=== PATIENT | female | born 1940 | race Caucasian/White ===

== ENCOUNTER 2021-04-23 09:01 | Outpatient (CLI) | payer OTHER, SELFPAY ==
--- NOTE | ~2021-04-23 | MM_ITS ---
EXAMINATION: MM screening chin BI w jamaal HISTORY: Screening mammogram TECHNIQUE: Craniocaudal and mediolateral oblique 3-D tomosynthesis images were obtained and synthetic 2-D images were generated. CAD analysis was submitted and interpreted. COMPARISON: 05/04/2019, 04/28/2018, 04/11/2017 bilateral digital screening mammogram examinations BREAST PARENCHYMAL COMPOSITION: There are scattered areas of fibroglandular density. FINDINGS: There is no evidence of suspicious mass, calcification, or architectural distortion to sugg est malignancy in either breast. There has been no suspicious interval change. IMPRESSION: 1. No mammographic evidence of malignancy. 2. Recommend routine screening mammography in one year. BI-RADS Category 1: Negative Reviewed, dictated and finalized at location A.
== END 2021-04-23 09:02 | disposition home or self-care (01) ==
LOC: ANHIMG 09:06
PROVIDERS: PCP Emergency Medicine; Visit Provider Emergency Medicine
DX: Z12.31 Encounter for screening mammogram for malignant neoplasm of breast (principal)
CPT/HCPCS: 77063; 77067

== ENCOUNTER 2022-03-13 11:08 | Emergency (ER) | payer OTHER, SELFPAY ==
[2022-03-13 11:19] VITALS: BP 145/77; PULSE 96; RESP 16; TEMP 36.4; O2SAT 99
== END 2022-03-13 11:21 | disposition left against medical advice (07) ==
PROVIDERS: Emergency Provider Internal Medicine Hematology & Oncology; PCP Emergency Medicine
DX: Z53.21 Procedure and treatment not carried out due to patient leaving prior to being seen by health care provider (principal)
CPT/HCPCS: 99199

== ENCOUNTER 2022-07-27 13:26 | Outpatient (CLI) | payer OTHER, SELFPAY ==
--- NOTE | ~2022-07-27 | DEXA_ITS ---
Bone Density Report Name: DELANEY ROSAS Age: 82 Sex: Female Ethnicity: White Date of : 1940 Indication: postmenopausal; screening for osteoporosis; height loss; hysterectomy; Referring Provider: HELEN SILVA Study: Bone densitometry was performed. Exam Date: July 27, 2022 Accession number: [id number] Bone Density: Region BMD T-score Z-score Classification AP Spine(L1-L4) 0.916 -1.2 1.7 Osteopenia Femoral Neck (Left) 0.583 -2.4 0.1 Osteopenia Total Hip (Left) 0.627 -2.6 -0.3 Osteoporosis Femoral Neck (Right) 0.591 -2.3 0.2 Osteopenia Total Hip (Right) 0.672 -2.2 0.1 Osteopenia Total Hip Mean 0.650 -2.4 -0.1 Osteopenia World Health Organization criteria for BMD impression classify patients as: Normal (T-score at or above -1.0), Osteopenia (T-score between -1.0 and -2.5), or Osteoporosis (T-score at or below -2.5). 10-year Fracture Risk: FRAX not reported because: Some T-score for Spine Total or Hip Total or Femoral Neck at or below -2.5 Clinical Information Provided by Patient: Has the following medical conditions: Hysterectomy Patient maximum height was 66 Menopause Age: 45 No regular weight bearing exercise Does not regularly consume dairy products Onset of menses at age 12 Number of children 3 Impression: The patient has osteoporosis, based on the Left Total Hip T-score. Discussion: INCREASED RISK OF FRACTURE. BONE DENSITY IS UNDESIRABLY LOW AT ONE OR MORE SKELETAL SITES, CONSISTENT WITH POSTMENOPAUSAL OSTEOPOROSIS. This patient's lowest T-score meets the World Health Organization's (WHO) criteria for osteoporosis at one or more sites (T-score -2.5 or below). In untreated patients, the risk of osteoporotic fracture increases approximately two-fold for each 1.0 SD decrease in T-score. Low bone density is not the only risk factor for fracture; also consider factors such as patient's age, frailty or poor health, risk of falling, risk of injury, previous osteoporotic fracture, family history of osteoporosis, cigarette smoking, low body weight, etc. Not everyone with low bone mineral density has osteoporosis; osteomalacia and other metabolic bone disorders should also be considered. Patients who have osteoporosis should be evaluated for specific diseases and conditions (secondary causes) that may cause or contribute to bone loss. The [place] [employer]ocrin[employer] (AACE) and National Osteoporosis Foundation (NOF) recommend pharmacologic intervention for all postmenopausal women whose T-score is in this range. The patient should follow a healthful lifestyle (good nutrition with adequate calcium and vitamin D, and appropriate weight-bearing exercise). Follow-Up: Consider a repeat BMD and Vertebral Fracture Assessment (VFA) exam in 2 years or sooner if med
== END 2022-07-27 13:27 | disposition home or self-care (01) ==
PROVIDERS: PCP Emergency Medicine; Visit Provider Obstetrics & Gynecology Gynecology
DX: Z78.0 Asymptomatic menopausal state (principal); M85.88 Other specified disorders of bone density and structure, other site; M81.6 Localized osteoporosis [Lequesne]
CPT/HCPCS: 77080

== ENCOUNTER 2022-07-29 09:33 | Outpatient (CLI) | payer OTHER, SELFPAY ==
--- NOTE | ~2022-07-29 | MM_ITS ---
EXAMINATION: MM screening chin BI w jamaal HISTORY: Screening TECHNIQUE: Craniocaudal and mediolateral oblique 3-D tomosynthesis images were obtained and synthetic 2-D images were generated. CAD analysis was submitted and interpreted. COMPARISON: Comparison to multiple prior studies sequentially, with oldest reviewed study dated 06/16. BREAST PARENCHYMAL COMPOSITION: There are scattered areas of fibroglandular density. FINDINGS: Bilateral breast asymmetries are stable. There is no evidence of suspicious mass, calcifica tion, or architectural distortion to suggest malignancy in either breast. There has been no suspiciou s interval change. IMPRESSION: 1. No mammographic evidence of malignancy. 2. Recommend routine screening mammography in one year. BI-RADS Category 1: Negative Reviewed, dictated and finalized at location B. TRIAGE
== END 2022-07-29 09:34 | disposition home or self-care (01) ==
PROVIDERS: PCP Emergency Medicine; Visit Provider Obstetrics & Gynecology Gynecology
DX: Z12.31 Encounter for screening mammogram for malignant neoplasm of breast (principal)
CPT/HCPCS: 77063; 77067

== ENCOUNTER 2024-04-26 16:36 | Emergency (ER) | payer OTHER, SELFPAY ==
[2024-04-26 16:39] VITALS: BP 188/78; PULSE 78; RESP 15; TEMP 37.1; O2SAT 98
== END 2024-04-26 17:15 | disposition left against medical advice (07) ==
LOC: ANHED 18:34
PROVIDERS: PCP Emergency Medicine
DX: R10.9 Unspecified abdominal pain (principal)
CPT/HCPCS: 99199

== ENCOUNTER 2024-04-30 12:13 | Outpatient (CLI) | payer OTHER, SELFPAY ==
--- NOTE | ~2024-04-30 | XR_ITS ---
XR abdomen obstructive series Ordering provider: Sung Juarez MD History: . R10.9 - Unspecified abdominal pain . Comparison: None. FINDINGS: BOWEL: Nonobstructive bowel gas pattern. ORGANOMEGALY: None. SIGNIFICANT PATHOLOGIC CALCIFICATIONS: None. OTHER: No free air is seen under the diaphragm. S-shaped scoliosis. Degenerative spine. IMPRESSION: NO ACUTE ABDOMINAL FINDINGS. Reviewed, dictated and finalized at location A.
== END 2024-04-30 12:14 | disposition home or self-care (01) ==
PROVIDERS: PCP Emergency Medicine; Visit Provider Emergency Medicine
DX: R10.9 Unspecified abdominal pain (principal)
CPT/HCPCS: 74019

== ENCOUNTER 2024-06-03 11:26 | Emergency (ER) | payer OTHER, SELFPAY ==
--- NOTE | ~2024-06-03 | CT_ITS ---
CT abdomen pelvis wo con Ordering provider: Leroy Leone MD History: 84 years Female with . right lower back pain . Comparison: None. Technique: CT abdomen and pelvis without IV and without oral contrast. Automated exposure control and iterative reconstruction technique were employed. The dose-length product was 312.12 mGy-cm. Findings: VISUALIZED LOWER CHEST: Normal. Possibility of a defect in the left hemidiaphragm is not excluded with a high position of the left ki dney. UPPER ABDOMINAL ORGANS: Liver: Highly suggestive cyst in the medial aspect of the liver adjacent to the IVC which is collapse d and measures 3.1 x 2.1 cm. Gallbladder: Distended gallbladder with no definite stones. Possible pulmonary in the area of the fun dus anteriorly is not excluded which measures 7 mm Spleen: Splenomegaly. Stomach/duodenum: Small sliding hiatus hernia. Pancreas: Normal. Adrenals: Normal. Kidneys: Normal. PELVIC ORGANS: The bladder shows slightly thickened anterior wall most likely due to underfilling. BOWEL AND MESENTERY: Colon: No evidence of diverticulitis. No evidence of appendicitis. Small Bowel: Normal. No obstruction. Peritoneum/mesentery: No free air or free fluid. No mesenteric lymphadenopathy. RETROPERITONEUM: Moderate atheromatous disease of the abdominal aorta. No retroperitoneal lymphaden opathy. MUSCULOSKELETAL: Superficial soft tissues: The superficial soft tissues are normal. Bones: Age appropriate degenerative changes of the spine. Levoscoliosis. Pubic symphysitis. Bilateral sacroiliitis. IMPRESSION: 1. No evidence of appendicitis, diverticulitis or intestinal obstruction. 2. Distended gallbladder with no stones. Possibility of a polyp cannot be excluded. 3. Splenomegaly. 4. Highly suggestive cyst in the right lobe of the liver medially. Ultrasound confirmation advised. 5. Possible defect in the left hemidiaphragm. 6. Small sliding hiatus hernia. Reviewed, dictated and finalized at location A. IMPRESSION: 1. No evidence of appendicitis, diverticulitis or intestinal obstruction. 2. Distended gallbladder with no stones. Possibility of a polyp cannot be excl uded. 3. Splenomegaly. 4. Highly suggestive cyst in the right lobe of the liver medially. Ultrasound confirmation advised. 5. Possible defect in the left hemidiaphragm. 6. Small sliding hiatus hernia.
[2024-06-03 11:45] VITALS: BP 133/57; PULSE 69; RESP 16; TEMP 36.6; O2SAT 100
[2024-06-03 13:21] VITALS: BP 148/64; PULSE 76; RESP 19; O2SAT 98
--- NOTE | 2024-06-03 14:24 | ED.BACK ---
HPI - Back Pain/Injury General Chief Complaint: Back Pain/Injury Stated Complaint: back pain Time Seen by Provider: 06/03/24 13:16 History of Present Illness HPI Narrative: 84-year-old denies any specific falls or injuries she states she has had increased back pain for the last 3 days patient states pain is worse patient denies any associated chest pain or shortness of breath. Patient denies any specific pain with urination. Patient does have an issue with prolapse and has had to use a pessary device previously. Related Data Allergies Allergy/AdvReac Type Severity Reaction Status Date / Time No Known Allergies Allergy Verified 05/30/24 13:13 Review of Systems Review of Systems: All systems reviewed & are unremarkable except as noted in HPI and below PMFSH Past Medical History Medical History Anxiety Chronic headache Family History Family History Mother Family history of osteoporosis Family history of mental disorder Depression Family history of glaucoma Family history of cataracts Hypertension Asthma Family history of arthritis Family history of Parkinson's disease, Onset Age: 79 Father Hypertension Family history of alcoholism Family history of chronic obstructive pulmonary disease Family history of diabetes mellitus in first degree relative Family history of congestive heart failure Sibling Carcinoma of colon Family history of lung cancer Acute myocardial infarction Other Chronic headache Family history of malignant neoplasm of urinary bladder Social History Social History Smoking status: Former smoker Second hand tobacco smoke exposure: No Smoking end date: 08/15/88 Alcohol intake: current Current Housing: Decline to Answer Concerned About Future Housing: Decline to Answer Difficulty Paying Gas/Electric Bills: Decline to Answer Difficulty Paying for Meds: Decline to Answer Currently Unemployed: Decline to Answer Education: Decline to Answer Difficulty w/ Childcare or Family Care: Decline to Answer Exam Narrative: APPEARANCE: Uncomfortable appearing HEAD: normocephalic, atraumatic. EYES: PERRLA/EOMI, conjunctivae clear. NOSE: Normal no drainage EARS:TMS clear with good light reflex. THROAT: Pharynx clear, no exudate. NECK: Supple. No adenopathy, no masses. RESPIRATORY: Airway patent, respirations nonlabored. Clear to auscultation bilaterally, no rales, rhonchi, wheezing. CARDIOVASCULAR: Regular rate and rhythm without murmurs rubs or gallops. ABDOMINAL: Soft, nontender, nondistended, normal bowel sounds MUSCULOSKELETAL: Right lower back tenderness to palpation, no deformity, no ecchymosis, no rash. NEURO: Alert. Cranial nerves II through XII intact. Good gait. Good coordination SKIN: Warm, dry. Normal Color Course Vital Signs Vital signs: Vital Signs Temperature 97.9 F 06/03/24 11:45 Pulse Rate 69 06/03/24 11:45 Respiratory Rate 16 06/03/24 11:45 Blood Pressure 133/57 L 06/03/24 11:45 Pulse Oximetry 100 06/03/24 11:45 Temperature 97.9 F 06/03/24 11:45 Pulse Rate 75 06/03/24 17:08 Respiratory Rate 15 06/03/24 17:08 Blood Pressure 140/62 06/03/24 17:08 Pulse Oximetry 100 06/03/24 17:08 MDM - Back Pain/Injury MDM Narrative Medical decision making narrative: 84-year-old female presents emergency department for evaluation for lower back pain. Patient is afebrile with no leukocytosis hemoglobin of 13.6. Patient's INR is 1.0. Patient has no acute abnormalities on her CMP and UA is negative for infection. CT abdomen pelvis shows no etiology for the patient's symptoms. On reexamination patient states she does feel improved. Patient was updated the results of her workup and plan for treatment for pain at home. All questions concerns were
[2024-06-03] MEDS: CYCLOBENZAPRINE HCL 10 MG TABLET PO (14:35)
[2024-06-03] MEDS: MORPHINE SULFATE (*CRX) 2 MG/ML INJ IV PUSH (14:36)
[2024-06-03 14:58] LABS: Add Urine Microscopic? NO; Appearance Urine Clear (Clear); Bilirubin Urine Negative (Negative); Blood Urine Negative (Negative); Color Urine Yellow (Yellow); Glucose Urine UA Negative (Negative); Ketones Urine 2+ mg/dL (Negative); Leukocyte Esterase Ur Negative LEU/UL (Negative); Nitrate Urine Negative (Negative); Protein Urine Negative (Negative); Specific Grav Ur 1.011 (1.001-1.035)
[2024-06-03 15:11] LABS: Basophils Percent Auto 0.4 % (0.2-1.2); Eosinophils Percent Auto 0.2 % (0-4.4); Hematocrit 41.8 % (37.0-47.0); Hemoglobin 13.6 g/dL (12.0-15.0); Immature Granulocyte Absolute 0.01 K/mm3 (0.00-0.031); Immature Granulocyte Percent A 0.2 % (0-0.5); Lymphocytes Absolute Auto 2.54 K/mm3 (0.9-3.2); Lymphocytes Percent Auto 49.4 % (18.3-44.2); Mean Corpuscular HGB Conc 32.5 g/dl (32-36); Mean Corpuscular Hemoglobin 29.8 pg (26-34); Mean Corpuscular Volume 91.5 fl (80-100); Mean Platelet Volume 8.4 fl (7.4-10.4); Monocytes Absolute Auto 0.4 K/mm3 (0.1-0.6); Neutrophils Absolute Auto 2.2 K/mm3 (1.3-6.7); Neutrophils Percent Auto 42.8 % (45.5-73.1); Platelet Count Result 129 k/mm3 (150-375); Red Blood Count 4.57 M/mm3 (4.2-5.4); White Blood Count 5.1 K/mm3 (4.5-10.0)
[2024-06-03 15:21] LABS: Alanine Aminotransferase 15 U/L (6-35); Alkaline Phosphatase 77 U/L (38-126); Anion Gap 9 mmol/L (4-12); Aspartate Amino Transferase 25 U/L (14-36); Bilirubin,Total 0.7 mg/dL (0.2-1.3); Blood Urea Nitrogen 9 mg/dL (7-17); Carbon Dioxide 26 mmol/L (22-30); Chloride 102 mmol/L (98-107); Estimated Glomerular Filt Rate > 60; Glucose 94 mg/dL (65-110); Potassium 3.8 mmol/L (3.4-5.0); Sodium 137 mmol/L (137-145)
[2024-06-03 15:23] LABS: Partial Thromboplastin Time 26.7 Seconds (22.3-36.8); Prothrombin Time 13.3 Seconds (11.1-14.7)
[2024-06-03 15:29] LABS: Ovalocytes 1+; Platelet Estimate Slightly Decreased (Adequate)
[2024-06-03 15:30] LABS: Atypical Lymphocytes Present; Schistocytes None Seen
[2024-06-03] MEDS: HYDROcodone/acetaminophen (*CRX) 5-325 MG TABLET 1 TAB PO (16:59)
[2024-06-03] MEDS: KETOROLAC 15 MG/ML VIAL (*BKC) IV PUSH (16:59)
[2024-06-03 17:08] VITALS: BP 140/62; PULSE 75; RESP 15; O2SAT 100
== END 2024-06-03 17:14 | disposition home or self-care (01) ==
PROVIDERS: Emergency Provider Emergency Medicine; PCP Emergency Medicine
DX: M54.50 Low back pain, unspecified (principal); Z87.891 Personal history of nicotine dependence; Z79.899 Other long term (current) drug therapy; F41.9 Anxiety disorder, unspecified
CPT/HCPCS: 36415; 74176; 80053; 81003; 85025; 85610; 85730; 96374; 96375; 99284; A9270; J1885; J2270

== ENCOUNTER 2024-06-13 13:17 | Outpatient (CLI) | payer OTHER, SELFPAY ==
--- NOTE | ~2024-06-13 | US_ITS ---
COMPLETE ABDOMINAL ULTRASOUND Ordering provider: Sung Juarez MD History: . K76.89 - Other specified diseases of liver . Comparison: None. FINDINGS: LIVER: Normal size and echotexture. No focal hepatic lesions or perihepatic fluid collections are shereen ntified. Slightly increased echogenicity of the portal vein and bile ducts is noted. Cyst is seen in the right lobe of the liver measuring 1.1 x 1.6 x 3.3 cm. Portal vein flow is normal. GALLBLADDER: Possible Sludge is seen. No evidence for stones, gallbladder wall thickening or perichol ecystic fluid collections. A negative sonographic Cook's sign was noted. BILIARY DUCTS: No evidence for intra or extrahepatic biliary dilation. Common bile duct measures 4 mm in diameter which is within normal limits. PANCREAS: Is not demonstrated. SPLEEN: Normal size, echotexture and contour and measures 16.1 cm in length. KIDNEYS: Right measures 9.3x 3.5x 4.1 cm in length and the left 9.5x 3.5x 3.8 cm in length. There is no evidence for hydronephrosis, solid renal mass, renal calculi or perinephric fluid collections. No renal cysts. UPPER ABDOMINAL AORTA: Normal in caliber. IVC: Patent. FREE FLUID: None. IMPRESSION: 1. Slightly prominent biliary ducts and portal veins wall. Clinical correlation advised. Splenomegal y. Otherwise, Unremarkable complete ultrasound of the abdomen. Reviewed, dictated and finalized at location A. IMPRESSION: 1. Slightly prominent biliary ducts and portal veins wall. Clinical correlatio n advised. Splenomegaly. Otherwise, Unremarkable complete ultrasound of the abd omen.
== END 2024-06-13 13:18 | disposition home or self-care (01) ==
PROVIDERS: PCP Emergency Medicine; Visit Provider Emergency Medicine
DX: K76.89 Other specified diseases of liver (principal)
CPT/HCPCS: 76700